=== PATIENT | male | born 1930 | race Hispanic/Latino ===

== ENCOUNTER 2019-12-04 17:53 | Emergency (ER) | payer MEDICARE ==
[2019-12-04] MEDS ORDERED: LIDOCAINE (2%) 20 MG/1 ML VIAL 20 ML MDV INFILTRATI STA (18:48)
--- NOTE | 2019-12-04 19:44 | Emergency Department Report ---
ED Upper Extremity Inj HPI - General Chief Complaint: Wound/Laceration Stated Complaint: CUT FINGERS WITH KNIFE Time Seen by Provider: 12/04/19 18:48 Source: patient Mode of arrival: Ambulatory Limitations: No Limitations - History of Present Illness Initial Comments: Left index finger and right thumb while trying to take down his fillet knife from a height lost control causing a knife to follow down and cutting his left and right finger in the process of falling. Tetanus shot is up-to-date bleeding was associated to presents emergency department for wound evaluation and closure. Pain is dull throbbing rates at about a 3 out of 10. Sensation is intact good range of motion. MD Complaint: Injury to:: left, right Other Extremity Injury: Fingers: Left, Right Other Injuries: none Handedness: right Place: home Improves With: none Worsens With: none - Related Data Home Medications Medication Instructions Recorded Confirmed Last Taken Fenofibrate [Lofibra] 160 mg PO DAILY 02/25/15 02/25/15 02/25/15 HYDROcodone/APAP 7.5-325 [[place] 7.5 mg PO TID 02/25/15 02/25/15 02/25/15 7.5-325 mg TAB] Klor-Con M10 10 meq PO DAILY 02/25/15 02/25/15 02/25/15 Lasix TAB 20 mg PO DAILY 02/25/15 02/25/15 02/25/15 Linaclotide [Linzess] 290 mcg PO DAILY 02/25/15 02/25/15 02/25/15 Omeprazole [PriLOSEC] 20 mg PO DAILY 02/25/15 02/25/15 02/25/15 Plavix 75 mg PO DAILY 02/25/15 02/25/15 02/25/15 Pregabalin [Lyrica] 100 mg PO BID 02/25/15 02/25/15 02/25/15 Temazepam [Restoril] 30 mg PO QHS 02/25/15 02/25/15 02/25/15 Previous Rx's Medication Instructions Recorded Last Taken Type Clopidogrel [Plavix] 75 mg PO QDAY #30 tablet 02/28/15 Unknown Rx Furosemide [Lasix TAB] 20 mg PO QAM tablet 02/28/15 Unknown Rx HYDROcodone/APAP 7.5-325 [[place] 1 each PO TID tablet 02/28/15 Unknown Rx 7.5-325 mg TAB] Pantoprazole [Protonix TAB] 20 mg PO QDAY #30 tablet. 02/28/15 Unknown Rx Pregabalin 100 mg PO BID capsule 02/28/15 Unknown Rx Simvastatin (Nf) [Zocor TAB] 20 mg PO QHS #30 tablet 02/28/15 Unknown Rx Temazepam [Restoril] 30 mg PO QHS capsule 02/28/15 Unknown Rx Chlorhexidine Gluconate 5 ml TP BID #240 liquid 12/04/19 Unknown Rx [Antiseptic Skin Cleanser] Allergies Allergy/AdvReac Type Severity Reaction Status Date / Time No Known Allergies Allergy Unverified 02/25/15 10:38 ED Review of Systems ROS: Stated complaint: CUT FINGERS WITH KNIFE Other details as noted in HPI Comment: All other systems reviewed and negative ED Past Medical Hx - Past Medical History Previous Medical History?: Yes Hx Hypertension: Yes Hx Heart Attack/AMI: Yes Hx Congestive Heart Failure: Yes Additional medical history: hyperlipidemia - Surgical History Past Surgical History?: Yes Hx Appendectomy: Yes Additional Surgical History: lumbar spine - Social History Smoking Status: Former Smoker Substance Use Type: None - Medications Home Medications: Home Medications Medication Instructions Recorded Confirmed Last Taken Type Fenofibrate [Lofibra] 160 mg PO DAILY 02/25/15 02/25/15 02/25/15 History HYDROcodone/APAP 7.5-325 [[place] 7.5 mg PO TID 02/25/15 02/25/15 02/25/15 History 7.5-325 mg TAB] Klor-Con M10 10 meq PO DAILY 02/25/15 02/25/15 02/25/15 History Lasix TAB 20 mg PO DAILY 02/25/15 02/25/15 02/25/15 History Linaclotide [Linzess] 290 mcg PO DAILY 02/25/15 02/25/15 02/25/15 History Omeprazole [PriLOSEC] 20 mg PO DAILY 02/25/15 02/25/15 02/25/15 History Plavix 75 mg PO DAILY 02/25/15 02/25/15 02/25/15 History Pregabalin [Lyrica] 100 mg PO BID 02/25/15 02/25/15 02/25/15 History Temazepam [Restoril] 30 mg PO QHS 0702/25/15 02/25/15 History Clopidogrel [Plavix] 75 mg PO QDAY #30 tablet 02/28/15 Unknown Rx Furosemide [Lasix TAB] 20 mg PO QAM tablet 02/28/15 Unknown Rx HYDROcodone/APAP 7.5-325 [[place] 1 each PO TID tablet 02/28/15 Unknown Rx 7.5-325 mg TAB] Pantoprazole [Protonix TAB] 20 mg PO QDAY #30 tablet.dr 02/28/15 Unknown Rx Pregabalin 100 mg PO BID capsule 02/28/15 Unknown Rx Simvastatin (Nf) [Zocor TAB] 20 mg PO QHS #30 tablet 02/28/15 Unknown Rx Temazepam [Restoril] 30 mg PO QHS capsule 02/28/15 Unknown Rx Chlorhexidine Gluconate 5 ml TP BID #240 liquid 12/04/19 Unknown Rx [Antiseptic Skin Cleanser] ED Physical Exam - General Limitations: No Limitations General appearance: alert, in no apparent distress - Head Head exam: Present: atraumatic, normocephalic - Eye Eye exam: Present: normal appearance, PERRL, EOMI Pupils: Present: normal accommodation - ENT ENT exam: Present: normal exam, normal orophraynx, mucous membranes moist, TM's normal bilaterally, normal external ear exam - Neck Neck exam: Present: normal inspection, full ROM - Respiratory Respiratory exam: Present: normal lung sounds bilaterally. Absent: respiratory distress, wheezes, rales, chest wall tenderness, accessory muscle use - Cardiovascular Cardiovascular Exam: Present: regular rate, normal rhythm. Absent: systolic murmur, diastolic murmur, rubs, gallop - GI/Abdominal GI/Abdominal exam: Present: soft, normal bowel sounds - Rectal Rectal exam: Present: deferred - Extremities Exam Extremities exam: Present: normal inspection - Expanded Upper Extremity Exam Left Hand Wrist exam: Present: laceration Hand L/R Front: 1 - Positive: laceration (2.5 cm) 2 - Positive: laceration Neuro motor exam: Present: other Vascular: Present: normal capillary refill - Expanded Lower Extremity Exam Left Neuro vascular tendon exam: Present: no vascular compromise - Back Exam Back exam: Present: normal inspection - Neurological Exam Neurological exam: Present: alert, oriented X3 - Psychiatric Psychiatric exam: Present: normal affect, normal mood - Skin Skin exam: Present: warm, dry, intact, normal color. Absent: rash ED Course Vital Signs 12/04/19 12/04/19 18:03 19:58 Temperature 97.9 F Pulse Rate 69 Respiratory 20 16 Rate Blood Pressure 152/63 Blood Pressure 167/64 [Left] O2 Sat by Pulse 98 Oximetry - Procedure Description Procedures done: Left index finger was prepped and draped in sterile fashion anesthesia achieved with 2% lidocaine with no epinephrine and #4 Prolene was placed in simple operative fashion x5 for wound closure good approximation estimated blood loss was less than 5 cc the procedure was tolerated well. Right index finger placed was prepped and draped in sterile fashion anesthesia achieved with 2% lidocaine with no epinephrine. 4-0 Prolene was placed in s imple interrupted fashion x6 for wound closure hemostasis was achieved good wound approximation Critical care attestation.: If time is entered above; I have spent that time in minutes in the direct care of this critically ill patient, excluding procedure time. ED Disposition Clinical Impression: Finger laceration Disposition: DC-01 TO HOME OR SELFCARE Is pt being admited?: No Does the pt Need Aspirin: No Condition: Stable Instructions: Suture Care (ED), Laceration (ED) Additional Instructions: Please follow-up in 3 days for wound reevaluation and be evaluated in 7 to 10 d ays for possible suture removal Prescriptions: Chlorhexidine Gluconate [Antiseptic Skin Cleanser] 5 ml TP BID #240 liquid Referrals: KAUSHAL VANESSA MD [Staff Physician] - 2-3 Days
[2019-12-04 19:59] VITALS: BP 167/64
== END 2019-12-04 20:04 | disposition home or self-care (01) ==
LOC: ED 17:53
DX: S61.211A Laceration without foreign body of left index finger without damage to nail, initial encounter (principal); S61.011A Laceration without foreign body of right thumb without damage to nail, initial encounter; W26.0XXA Contact with knife, initial encounter; Y93.89 Activity, other specified; Y92.89 Other specified places as the place of occurrence of the external cause; Y99.8 Other external cause status
CPT/HCPCS: 99281